=== PATIENT | male | born 1985 | race Hispanic/Latino ===

== ENCOUNTER 2020-07-16 16:09 | Emergency (ER) | payer BC, SELFPAY ==
[2020-07-16] MEDS ORDERED: Boostrix 0.5 ML (Tdap) VIAL ONE (16:36)
[2020-07-16] MEDS ORDERED: Lidocaine 2% PF 5 ML VIAL ONE (16:44)
[2020-07-16] MEDS ORDERED: Cephalexin 250 MG CAP ONE (17:18)
[2020-07-16] MEDS ORDERED: Bacitracin 1 PK ONE (17:18)
== END 2020-07-16 17:33 | disposition home or self-care (01) ==
LOC: BURERS 16:09
DX: S56.422A Laceration of extensor muscle, fascia and tendon of left index finger at forearm level, initial encounter (principal); S61.213A Laceration without foreign body of left middle finger without damage to nail, initial encounter; Z23 Encounter for immunization; W23.0XXA Caught, crushed, jammed, or pinched between moving objects, initial encounter; Y99.0 Civilian activity done for income or pay
CPT/HCPCS: 12002; 90471; 90715; J2001